=== PATIENT | female | born 2000 | race Caucasian/White ===

== ENCOUNTER 2022-02-27 14:11 | Emergency (ER) | payer OTHER, SELFPAY ==
[2022-02-27 14:23] VITALS: BP 134/90; PULSE 67; RESP 16; TEMP 36.7; O2SAT 100; BMI 20.7
--- NOTE | 2022-02-27 14:51 | ED.NAVMDI ---
HPI - Nausea/Vomiting/Diarrhea <RADHA Castro - Last Filed: 02/27/22 15:45> General Chief complaint: Nausea/Vomiting/Diarrhea Stated complaint: D t-8 abd pain also Time Seen by Provider: 02/27/22 14:50 Source: patient Mode of arrival: Ambulatory History of Present Illness HPI Narrative: This is a 21-year-old female presents to the emergency department complaining of nausea and diarrhea for the last few days with 3 days of upper abdominal pain, states it is worse with coffee, denies fever, chills, difficulty keeping anything down has not had any vomiting. She states that her family has history of GERD, states she has not tried anything for pain, endorses having Nexplanon implant for contraception. She denies any dysuria, endorses having urinary frequency and has been waking her up at night. Related Data Previous Rx's Medication Instructions Recorded cephalexin 500 mg tablet 500 mg PO BID 7 days #14 tabs 02/27/22 phenazopyridine 200 mg tablet 200 mg PO QPC 6 doses #7 tabs 02/27/22 (Pyridium) Allergies Allergy/AdvReac Type Severity Reaction Status Date / Time No Known Drug Allergies Allergy Verified 02/27/22 14:28 Review of Systems <RADHA Castro - Last Filed: 02/27/22 15:45> Review of Systems ROS Unobtainable: All systems reviewed & are unremarkable except as noted in HPI and below Patient History <RADHA Castro - Last Filed: 02/27/22 15:45> Social History Smoking Status: Current some day smoker Smoking Status: Current some day smoker tobacco type: vaping Substance Use Type: marijuana Exam <RADHA Castro - Last Filed: 02/27/22 15:45> Narrative Exam Narrative: Reviewed vitals signs and nursing notes. General: cooperative, comfortable, thin, afebrile in no acute distress, well groomed, p.o. tolerant HEENT: symmetrical facial expressions, moist mucous membranes Cardiovascular: regular rate and rhythm, no peripheral edema, warm extremities Respiratory: normal effort, able to speak in complete sentences, without wheezing, stridor, or abnormal breath sounds. No retractions or tachypnea. GI: abdomen soft, nontender to palpation, nondistended, without masses, rebound tenderness or exquisite tenderness with exam. MSK: moves all extremities, neurovascularly intact, no weakness, normal tone Skin: brisk capillary refill, without pallor or erythema Neuro: normal speech and cognition, A&O x3, ambulatory, clear speech Psych: mental status is grossly normal, congruent mood, normal affect, pleasant and cooperative Initial Vital Signs Initial Vital Signs: Vital Signs Temperature 98.1 F 02/27/22 14:23 Pulse Rate 67 02/27/22 14:23 Respiratory Rate 16 02/27/22 14:23 Blood Pressure 134/90 02/27/22 14:23 Pulse Oximetry 100 02/27/22 14:23 Oxygen Delivery Method 02/27/22 14:23 <Flavio Caro DO - Last Filed: 02/27/22 15:49> Initial Vital Signs Initial Vital Signs: Vital Signs Temperature 98.1 F 02/27/22 14:23 Pulse Rate 67 02/27/22 14:23 Respiratory Rate 16 02/27/22 14:23 Blood Pressure 134/90 02/27/22 14:23 Pulse Oximetry 100 02/27/22 14:23 Oxygen Delivery Method 02/27/22 14:23 Course <RADHA Castro - Last Filed: 02/27/22 15:45> Orders Ordered: ED Orders 02/27/22 15:00 Urine Culture Stat Urine Microscopic Stat Discontinued Medications Cephalexin HCl (Cephalexin 250 Mg Capsule) 500 mg PO NOW ONE Stop: 02/27/22 15:40 Last Admin: 02/27/22 15:43 Dose: 500 mg Documented By: JUSTUS Al Hydrox/Mg Hydrox/Simethicone 20 ml/ Lidocaine HCl 15 ml 0 ml PO NOW ONE Stop: 02/27/22 14:59 Last Admin: 02/27/22 15:14 Dose: 35 ml Documented By: KIM Ondansetron HCl (Ondansetron 4 Mg Odt) 4 mg SL NOW ONE Stop: 02/27/22 15:12 Last Admin: 02/27/22 15:16 Dose: 4 mg Documented By: KIM Vital Signs Vital signs: Vital Signs - 8 hr 02/27/22 14:23 Temperature 98.1 F Pulse Rate 67 Respiratory Rate 16 Blood Pressure 134/90 Pulse Oximetry 100 Oxygen Delivery Method Room Air <Flavio Caro DO - Last Filed: 02/27/22 15:49> Orders Ordered: ED Orders 02/27/22 15:00 Urine Culture Stat Urine Microscopic Stat Discontinued Medications Cephalexin HCl (Cephalexin 250 Mg Capsule) 500 mg PO NOW ONE Stop: 02/27/22 15:40 Last Admin: 02/27/22 15:43 Dose: 500 mg Documented By: JUSTUS Al Hydrox/Mg Hydrox/Simethicone 20 ml/ Lidocaine HCl 15 ml 0 ml PO NOW ONE Stop: 02/27/22 14:59 Last Admin: 02/27/22 15:14 Dose: 35 ml Documented By: SB Ondansetron HCl (Ondansetron 4 Mg Odt) 4 mg SL NOW ONE Stop: 02/27/22 15:12 Last Admin: 02/27/22 15:16 Dose: 4 mg Documented By: SB Vital Signs Vital signs: Vital Signs - 8 hr 02/27/22 14:23 Temperature 98.1 F Pulse Rate 67 Respiratory Rate 16 Blood Pressure 134/90 Pulse Oximetry 100 Oxygen Delivery Method Room Air MDM - Nausea/Vomiting/Diarrhea <RADHA Castro - Last Filed: 02/27/22 15:45> Lab Data Lab results narrative: Urine dip negative for infection or blood Labs: Lab Results 02/27/22 Range/Units 15:00 Urine RBC 0-1/hpf (0-5/HPF) Urine WBC 1-5/hpf (0-5/HPF) Ur Squamous Epith Cells 5-10 /hpf H (0-5/HPF) Urine Bacteria Many (>30) H (None) Ur Culture Indicated? Specimen cultured Point of Care Testing Test Results Negative Urine Dip Bedside Urine Glucose Negative Bedside Urine Bilirubin - Negative Bedside Urine Ketone +/- 5 Urine Specific [place] 1.03 Bedside Urine Occult Blood - Negative Bedside Urine pH 6.0 Bedside Urine Protein - Negative Bedside Urine Urobilinogen - Negative Bedside Urine Nitrite - Negative Bedside Urine Leukocytes - Negative Esterase MDM Narrative Medical decision making narrative: This is a 21-year-old female presents to the emergency department complaining of diarrhea, nausea and urinary frequency for the last 3 days. States that her pain is fairly constant and exacerbated when she drinks caffeine. She is without vomiting, upper respiratory symptoms, or systemic illness, denies any blood in her stool. Denies being around any sick contacts. Urine dip was negative for leukocytes or blood, patient has tenderness to her epigastrium and mild tenderness to the right upper quadrant with deep palpation. No other abdominal tenderness or rebound tenderness. She is p.o. tolerant without vomiting. She is given a GI cocktail which mildly helped her symptoms. No tenderness over right lower quadrant, lower quadrant, mild tenderness over right ovary in over left, patient is 2 weeks status post her last menstrual cycle, discussed that this could be ovarian cyst, gastritis colitis, gastroenteritis, but patient have symptoms that are worsening at this time. She denies any blood in her stool, has not had any vomiting, fever, or worsening condition. She denies any for any medications, states that her stool became more solid today and came in for evaluation because her grandmother told her to. No peritoneal signs on abdominal exam. Patient remains p.o. tolerant. Serial abdominal exam without increase in abdominal pain. Urine microscopy came back positive for many bacteria and 5-10 squamous epithelial cells, urine was sent for culture, patient was given cephalexin for acute cystitis since she has symptom of urinary frequency and urgency. Given history and exam, low suspicion for acute abdominal process, such as acute cholecystitis, pancreatitis, ovarian cyst, STI, perforated viscus, atypical appendicitis, colitis, diverticulitis or torsion. Extensive conversation about ER return precautions and need for close follow-up. Patient is appropriate and amenable to discharge home. Vital signs are stable on repeat examination is unremarkable. Patient has been informed of results. Patient has been given strict return to ER precautions for any new or worsening symptoms. Patient understands to follow up closely with outpatient providers as instructed. Patient understands plan and agrees to discharge home. All questions and concerns answered at this time. <Flavio Caro, DO - Last Filed: 02/27/22 15:49> Lab Data Labs: Lab Results 02/27/22 Range/Units 15:00 Urine RBC 0-1/hpf (0-5/HPF) Urine WBC 1-5/hpf (0-5/HPF) Ur Squamous Epith Cells 5-10 /hpf H (0-5/HPF) Urine Bacteria Many (>30) H (None) Ur Culture Indicated? Specimen cultured Point of Care Testing Test Results Negative Urine Dip Bedside Urine Glucose Negative Bedside Urine Bilirubin - Negative Bedside Urine Ketone +/- 5 Urine Specific [place] 1.03 Bedside Urine Occult Blood - Negative Bedside Urine pH 6.0 Bedside Urine Protein - Negative Bedside Urine Urobilinogen - Negative Bedside Urine Nitrite - Negative Bedside Urine Leukocytes - Negative Esterase Discharge Plan Departure Patient Disposition: Home Clinical Impression: Acute cystitis Qualifiers: Hematuria presence: with hematuria Qualified Code(s): N30.01 - Acute cystitis with hematuria Diarrhea Qualifiers: Diarrhea type: unspecified type Qualified Code(s): R19.7 - Diarrhea, unspecified Instructions: Diarrhea, Acute Cystitis, Acute Abdominal Pain, DI for Ovarian Cyst Activity Restrictions/Additional Instructions: *You have been diagnosed with abdominal pain and diarrhea without clear cause. Uou do not have symptoms of upper respiratory viral illness, you are at a perfect time for an ovarian cyst which can irritate the colon and cause diarrhea. If your symptoms improve, no need for any intervention, if they worsen or you have worsening pain or more frequent diarrhea, or if there is blood in your diarrhea, please have another evaluation. Then we would look for a more clear cause. Please stay hydrated, try to avoid ibuprofen, coffee or smoking with an empty stomach as it can lead to an ulcer. If Tums is helpful, give it a try, if it is not use ibuprofen and Tylenol with food and water to see if your symptoms improve. I wish you the best, thank you for coming in and return for worsening condition. The urine from the microscope came back with bacteria, please take antibiotic for the next 7 days, stay hydrated, okay to use Tylenol and ibuprofen as needed for your symptoms. Pyridium is for the pain in your stomach, it will stay in your urine orange. *What to do: *Please continue to take your regular medications as directed. [ ] New medication prescriptions sent to your pharmacy: [[facility]] [ ] New medication written as a paper prescription [x ] No new medications given *Please follow up with your primary care provider in 2-3 days, call for an appointment. Let them know you were seen in the Emergency Department and that we asked that you be seen for follow-up. We will electronically transmit a record of today's note if your PCP is in our system *If you do not have a primary care provider please contact [phone] to establish care with one of the [facility] primary care providers. *Return to Emergency Department if you should have any new, worsening, or concerning symptoms, such as [fever greater than 101F, chills, worsening pain, persistent vomiting or other bothersome symptoms]. Prescriptions: New cephalexin 500 mg tablet 500 mg PO BID 7 Days Qty: 14 0RF phenazopyridine [Pyridium] 200 mg tablet 200 mg PO QPC Qty: 7 0RF Referrals: Flavio Blank MD [Primary Care Provider] - Visit Report Forms: Patient Portal/API <Flavio Caro DO - Last Filed: 02/27/22 15:49> Cosign ED Attending Cosignature Attestation: Dr Caro Co-Sign Statement: I was available for consultation during this patient's emergency department visit. This chart is signed by myself for administrative purposes only. I did not have direct contact with this patient during this visit. They were seen independently by the APC.
[2022-02-27] MEDS: MAG HYDROX/ALUMINUM/SIMETH SUS 20 ML, LIDOCAINE VISCOUS 2% 15 ML PO (15:14)
[2022-02-27] MEDS: ONDANSETRON 4 MG ODT SL (15:16)
[2022-02-27 15:36] LABS: Bacteria Urine Many (>30); Culture Indicated Urine Specimen Cultured; RBC Urine 0-1/HPF (0-5/HPF); Squamous Epithelial Cell Urine 5-10 /HPF (0-5/HPF); WBC Urine 1-5/HPF (0-5/HPF)
[2022-02-27] MEDS: cephALEXin 250 MG CAPSULE 500 MG PO (15:43)
== END 2022-02-27 15:45 | disposition home or self-care (01) ==
PROVIDERS: Emergency Provider Nurse Practitioner Critical Care Medicine; PCP Family Medicine
DX: N30.01 Acute cystitis with hematuria (principal); R19.7 Diarrhea, unspecified; R10.13 Epigastric pain
CPT/HCPCS: 81003; 81015; 81025; 99283